=== PATIENT | female | born 1935 | race Caucasian/White ===

== ENCOUNTER → 2023-04-20 | Outpatient (CLI) | payer MEDICARE ==
--- NOTE | 2023-04-20 18:18 | Diagnostic Imaging Report ---
INDICATION: Bilateral hip pain COMPARISON: Imaging of the lumbar spine from same date. TECHNIQUE: Five radiographs of the pelvis and bilateral hips dated 04/20/2023. FINDINGS: [place] left curvature of the partially visualized lower lumbar spine with associated moderate degenerative changes. The sacroiliac joints and pubic symphysis are intact. No acute fracture or dislocation. No destructive osseous process. Mild joint space narrowing of the bilateral hips with mild osteophyte formation. The bilateral femoral heads maintain their normal shape and contour. Phleboliths within the lower pelvis. IMPRESSION: No acute osseous abnormality with mild scattered degenerative changes within the bilateral hips. [place] left curvature of the partially visualized lower lumbar spine with associated degenerative changes. Dictated by: Dictated on workstation # [id number]
--- NOTE | 2023-04-20 19:43 | Diagnostic Imaging Report ---
CLINICAL INDICATION: Patient with lumbar radiculopathy. EXAM: X-ray of the lumbar spine, 5 views. COMPARISON: None. FINDINGS: There is levoscoliosis of the lumbar spine. There is no acute lumbar spine fracture. There is grade 1 anterolisthesis of L4 on L5. There are [id number] hypertrophic spurs involving the lumbar spine. There is multilevel loss of disk space height. There is severe loss of disk space height involving the L1-L2 and L3-L4 levels. There is moderate loss of disk space height at the L4-L5 level. There is lower lumbar spine facet arthropathy/hypertrophy and sclerosis. 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 Dictated by: Dictated on workstation # [id number]
== END ==
LOC: RAD 13:59
PROVIDERS: ATTEND Nurse Practitioner
DX: M47.816 Spondylosis without myelopathy or radiculopathy, lumbar region (principal); M16.0 Bilateral primary osteoarthritis of hip
CPT/HCPCS: 72110; 73523